=== PATIENT | male | born 1930 | race Caucasian/White ===

== ENCOUNTER 2017-08-27 10:58 | Emergency (ER) | payer OTHER ==
[~2017-08-27] VITALS: Ht 177.8 cm; Wt 83.5 kg
[~2017-08-27 10:58] MED LIST: AMLO5TAB2 PO; ASPI-496 PO; ATOR20TA9 PO; CHOL5000 PO; HYAL0.5P PO; METF500T4 PO; TERA5CAP3 PO; UBID30CA9 PO
[2017-08-27] MEDS ORDERED: SODIUM CHLORIDE FLUSH 10ML SYR IVF ONE (11:30)
[2017-08-27 11:50] LABS: BASOPHILS # (AUTO) 0.04 x10^3/uL (0-0.1); BASOPHILS % (AUTO) 1 % (0-1); EOSINOPHILS # (AUTO) 0.58 x10^3/uL (0-0.4); EOSINOPHILS % (AUTO) 9 % (1-7); LYMPHOCYTES # (AUTO) 1.45 x10^3/uL (1-3.4); LYMPHOCYTES % (AUTO) 24 % (22-44); MD NO; MEAN CORPUSCULAR HEMOGLOBIN 30.2 pg (27.5-34.5); MEAN CORPUSCULAR HGB CONC 33.5 g/dL (33.2-36.2); MEAN CORPUSCULAR VOLUME 90.3 fL (81-97); MEAN PLATELET VOLUME 7.9 fL (7.4-10.4); MONOCYTES # (AUTO) 0.72 x10^3/uL (0.2-0.8); MONOCYTES % (AUTO) 12 % (2-9); NEUTROPHILS # (AUTO) 3.34 x10^3/uL (1.8-6.8); NEUTROPHILS % (AUTO) 54 % (42-75); PLATELET COUNT 270 x10^3/uL (130-400); RED BLOOD COUNT 4.89 x10^6/uL (4.38-5.82); RED CELL DISTRIBUTION WIDTH 13.8 % (9.4-14.8)
[2017-08-27 12:02] LABS: ALBUMIN 3.7 g/dL (3.4-5.0); CALCIUM 8.2 mg/dL (8.5-10.1); CHLORIDE 104 mmol/L (98-107)
[2017-08-27 12:07] LABS: ALANINE AMINOTRANSFERASE 26 U/L (12-78); ALKALINE PHOSPHATASE 38 U/L (45-117); BILIRUBIN,TOTAL 0.8 mg/dL (0.2-1.0); CREATININE 0.96 mg/dL (0.7-1.3); TOTAL PROTEIN 7.1 g/dL (6.4-8.2); TROPONIN I < 0.015 ng/mL (0.000-0.045)
[2017-08-27 12:12] LABS: ANION GAP 4 mmol/L (5-15)
[2017-08-27] MEDS ORDERED: CHOL5000 PO (12:51)
[2017-08-27 12:59] VITALS: BP 154/71
== END 2017-08-27 13:14 | disposition home or self-care (01) ==
LOC: ED 13:08
DX: R06.00 Dyspnea, unspecified (principal); R53.1 Weakness; R06.2 Wheezing; Z87.891 Personal history of nicotine dependence
CPT/HCPCS: 36415; 71045; 80053; 84484; 85025; 93005; 99285

== ENCOUNTER 2017-08-30 09:53 | Emergency (ER) | payer OTHER ==
[~2017-08-30] VITALS: Ht 177.8 cm; Wt 82.2 kg
[2017-08-30 10:13] VITALS: BP 126/73
[2017-08-30] MEDS ORDERED: ALBUTEROL/IPRATROPIUM 2.5MG/0.5MG, 3 ML ONE (10:44)
[2017-08-30] MEDS ORDERED: ALBUTEROL/IPRATROPIUM 2.5MG/0.5MG, 3 ML NPPB ONE (11:00)
== END 2017-08-30 12:14 | disposition home or self-care (01) ==
LOC: ED 10:57
DX: J00 Acute nasopharyngitis [common cold] (principal); Z87.891 Personal history of nicotine dependence
CPT/HCPCS: 71046; 94640; 99284; J7620

== ENCOUNTER 2017-11-13 23:00 | Inpatient (IN) | payer OTHER ==
[~2017-11-13] VITALS: Ht 180.3 cm; Wt 83.9 kg
[~2017-11-13 23:00] MED LIST changes: +ALBU18HF INH; +CETI10CA PO; +DOXY100T PO; +GUAI200T3 PO; +LOSA25TA2 PO; +METO25TA35 PO; +OMEP-110 PO
[2017-11-13] MEDS ORDERED: ALBUTEROL/IPRATROPIUM 2.5MG/0.5MG, 3 ML ONE (23:15)
[2017-11-13 23:25] LABS: BASOPHILS % (AUTO) 0 % (0-1); EOSINOPHILS % (AUTO) 0 % (1-7); LYMPHOCYTES # (AUTO) 0.69 x10^3/uL (1-3.4); LYMPHOCYTES % (AUTO) 7 % (22-44); MD NO; MEAN CORPUSCULAR HEMOGLOBIN 30.2 pg (27.5-34.5); MEAN CORPUSCULAR HGB CONC 33.6 g/dL (33.2-36.2); MEAN CORPUSCULAR VOLUME 89.8 fL (81-97); MEAN PLATELET VOLUME 8.1 fL (7.4-10.4); MONOCYTES # (AUTO) 0.92 x10^3/uL (0.2-0.8); MONOCYTES % (AUTO) 10 % (2-9); NEUTROPHILS # (AUTO) 7.65 x10^3/uL (1.8-6.8); NEUTROPHILS % (AUTO) 83 % (42-75); PLATELET COUNT 262 x10^3/uL (130-400); RED BLOOD COUNT 4.06 x10^6/uL (4.38-5.82); RED CELL DISTRIBUTION WIDTH 13.9 % (9.4-14.8)
[2017-11-13] MEDS ORDERED: ALBUTEROL/IPRATROPIUM 2.5MG/0.5MG, 3 ML NPPB ONE (23:30)
[2017-11-13] MEDS ORDERED: methylPREDNISolone SOD SUCC 125 MG/2 ML IVP ONE (23:30)
[2017-11-13] MEDS ORDERED: SODIUM CHLORIDE FLUSH 10ML SYR IVF ONE (23:30)
[2017-11-13 23:36] LABS: ALANINE AMINOTRANSFERASE 24 U/L (12-78); ALBUMIN 3.2 g/dL (3.4-5.0); ANION GAP 9 mmol/L (5-15); CALCIUM 8.3 mg/dL (8.5-10.1); CHLORIDE 98 mmol/L (98-107); CREATININE 1.14 mg/dL (0.7-1.3)
[2017-11-13 23:40] LABS: ALKALINE PHOSPHATASE 34 U/L (45-117); BILIRUBIN,TOTAL 0.3 mg/dL (0.2-1.0); TOTAL PROTEIN 6.3 g/dL (6.4-8.2); TROPONIN I < 0.015 ng/mL (0.000-0.045)
[2017-11-13] MEDS ORDERED: methylPREDNISolone SOD SUCC 125 MG/2 ML ONE (23:43)
[2017-11-14] MEDS ORDERED: FUROSEMIDE 40 MG/4 ML IV ONE
[2017-11-14] MEDS ORDERED: FUROSEMIDE 20 MG/2 ML ONE (00:05)
[2017-11-14] MEDS ORDERED: ACETAMINOPHEN 325 MG TABLET PO PRN (00:30)
[2017-11-14] MEDS ORDERED: CETIRIZINE 10 MG TABLET PO PRN (00:30)
[2017-11-14] MEDS ORDERED: BISACODYL 10 MG SUPP PR PRN (00:30)
[2017-11-14] MEDS ORDERED: ALBUTEROL SULFATE 2.5 MG/3 ML HHN PRN (00:30)
[2017-11-14] MEDS ORDERED: ONDANSETRON 2MG/ML, 2ML IVPush PRN (00:30)
[2017-11-14] MEDS: methylPREDNISolone SOD SUCC 125 MG/2 ML IVPush SCH ×4 (00:30→19:13)
[2017-11-14] MEDS ORDERED: GUAIFENESIN/DM 200-20MG, 10ML UDC PO PRN (00:30)
[2017-11-14] MEDS ORDERED: POLYETHYLENE GLYCOL 17 GM PACKET PO PRN (00:30)
[2017-11-14 00:56] LABS: HEMOGLOBIN A1C 6.6 % (4.2-6.3)
[2017-11-14 01:05] VITALS: BP 163/71
[2017-11-14] MEDS: MELATONIN 3 MG TABLET PO PRN ×2 (01:17→20:40)
[2017-11-14] MEDS: ATORVASTATIN 20 MG TABLET PO SCH ×2 (01:17→20:40)
[2017-11-14] MEDS: HEPARIN 5,000 UNITS/ML, 1ML SQ SCH ×3 (01:18→17:50)
[2017-11-14] MEDS ORDERED: ALBUTEROL SULFATE 2.5 MG/3 ML NPPB PRN (01:30)
[2017-11-14] MEDS: AZITHROMYCIN 500 MG in SODIUM CHLORIDE 0.9% 250 ML IV SCH (01:46)
[2017-11-14 05:51] LABS: ALANINE AMINOTRANSFERASE 26 U/L (12-78); ALBUMIN 3.3 g/dL (3.4-5.0); ANION GAP 8 mmol/L (5-15); CALCIUM 8.3 mg/dL (8.5-10.1); CHLORIDE 98 mmol/L (98-107); CREATININE 1.02 mg/dL (0.7-1.3)
[2017-11-14 05:54] LABS: ALKALINE PHOSPHATASE 34 U/L (45-117); BILIRUBIN,TOTAL 0.3 mg/dL (0.2-1.0); TOTAL PROTEIN 6.5 g/dL (6.4-8.2)
[2017-11-14 05:55] LABS: BASOPHILS % (AUTO) 0 % (0-1); EOSINOPHILS % (AUTO) 0 % (1-7); LYMPHOCYTES # (AUTO) 0.49 x10^3/uL (1-3.4); LYMPHOCYTES % (AUTO) 7 % (22-44); MD NO; MEAN CORPUSCULAR HEMOGLOBIN 30.2 pg (27.5-34.5); MEAN CORPUSCULAR HGB CONC 33.8 g/dL (33.2-36.2); MEAN CORPUSCULAR VOLUME 89.4 fL (81-97); MEAN PLATELET VOLUME 8.4 fL (7.4-10.4); MONOCYTES # (AUTO) 0.23 x10^3/uL (0.2-0.8); MONOCYTES % (AUTO) 3 % (2-9); NEUTROPHILS # (AUTO) 6.78 x10^3/uL (1.8-6.8); NEUTROPHILS % (AUTO) 90 % (42-75); PLATELET COUNT 255 x10^3/uL (130-400); RED BLOOD COUNT 4.02 x10^6/uL (4.38-5.82); RED CELL DISTRIBUTION WIDTH 14.6 % (9.4-14.8)
[2017-11-14] MEDS: METOPROLOL TARTRATE 25 MG TABLET PO SCH ×2 (06:21→17:57)
[2017-11-14 06:30] VITALS: BP 147/67
[2017-11-14] MEDS: SODIUM CHLORIDE FLUSH 10ML SYR IVF SCH ×2 (09:00→20:40)
[2017-11-14] MEDS ORDERED: metFORMIN 500 MG TABLET PO SCH (09:00)
[2017-11-14] MEDS: FUROSEMIDE 20 MG/2 ML IV SCH ×2 (09:17→17:50)
[2017-11-14] MEDS: SENNA/DOCUSATE TABLET PO SCH (09:22)
[2017-11-14] MEDS: TERAZOSIN 5MG CAPSULE PO SCH (09:22)
[2017-11-14] MEDS: ASPIRIN 81 MG TABLET EC PO SCH (09:22)
[2017-11-14] MEDS: OMEPRAZOLE 20 MG CAPSULE.DR PO SCH ×2 (09:23→17:50)
[2017-11-14] MEDS: CHOLECALCIFEROL 1,000 UNIT TABLET PO SCH (09:23)
[2017-11-14] MEDS: LOSARTAN 25MG TABLET PO SCH (09:23)
[2017-11-14] MEDS ORDERED: ALPR-475 PO (11:52)
[2017-11-14] MEDS ORDERED: AMLO5TAB2 PO (11:52)
[2017-11-14] MEDS ORDERED: ESCI10TA PO (11:52)
[2017-11-14 12:00] VITALS: BP 123/61
[2017-11-14] MEDS: GUAIFENESIN ER 600 MG TABLET PO SCH ×2 (12:07→20:40)
[2017-11-14] MEDS ORDERED: ALBU90AE INH (12:29)
[2017-11-14] MEDS ORDERED: ALBUTEROL SULFATE 90 MCG INH PRN (16:00)
[2017-11-14 19:32] VITALS: BP 132/62
[2017-11-15 01:22] VITALS: BP 131/66
[2017-11-15] MEDS: AZITHROMYCIN 500 MG in SODIUM CHLORIDE 0.9% 250 ML IV SCH (01:37)
[2017-11-15] MEDS: HEPARIN 5,000 UNITS/ML, 1ML SQ SCH ×2 (01:38→08:06)
[2017-11-15] MEDS: methylPREDNISolone SOD SUCC 125 MG/2 ML IVPush SCH ×2 (01:38→08:07)
[2017-11-15 08:04] VITALS: BP 124/60
[2017-11-15] MEDS: CHOLECALCIFEROL 1,000 UNIT TABLET PO SCH (08:05)
[2017-11-15] MEDS: SENNA/DOCUSATE TABLET PO SCH (08:05)
[2017-11-15] MEDS: GUAIFENESIN ER 600 MG TABLET PO SCH (08:05)
[2017-11-15] MEDS: TERAZOSIN 5MG CAPSULE PO SCH (08:06)
[2017-11-15] MEDS: ASPIRIN 81 MG TABLET EC PO SCH (08:06)
[2017-11-15] MEDS: OMEPRAZOLE 20 MG CAPSULE.DR PO SCH (08:06)
[2017-11-15] MEDS: LOSARTAN 25MG TABLET PO SCH (08:06)
[2017-11-15] MEDS: SODIUM CHLORIDE FLUSH 10ML SYR IVF SCH (08:07)
[2017-11-15] MEDS: FUROSEMIDE 20 MG/2 ML IV SCH (08:07)
[2017-11-15] MEDS ORDERED: CITALOPRAM 20 MG TABLET PO SCH (09:00)
[2017-11-15] MEDS ORDERED: METH4TAB2 PO (10:03)
[2017-11-15] MEDS ORDERED: CITA20TA9 PO (10:03)
== END 2017-11-15 11:30 | disposition home or self-care (01) | DRG 190 ==
LOC: ED 23:18 → EDIP 23:47 → 4WST 11-14 01:05 → DCLOUNGE 11-15 11:16
PROVIDERS: ADMIT Hospitalist; ATTEND Hospitalist
DX: J44.1 Chronic obstructive pulmonary disease with (acute) exacerbation (principal); I50.23 Acute on chronic systolic (congestive) heart failure; E11.65 Type 2 diabetes mellitus with hyperglycemia; E44.1 Mild protein-calorie malnutrition; D64.9 Anemia, unspecified; E87.1 Hypo-osmolality and hyponatremia; I11.0 Hypertensive heart disease with heart failure; Z68.25 Body mass index [BMI] 25.0-25.9, adult; E78.5 Hyperlipidemia, unspecified; G47.33 Obstructive sleep apnea (adult) (pediatric); N40.0 Benign prostatic hyperplasia without lower urinary tract symptoms; Z66 Do not resuscitate; Z80.0 Family history of malignant neoplasm of digestive organs; Z87.891 Personal history of nicotine dependence
CPT/HCPCS: 36415; 71045; 80053; 83036; 83735; 83880; 84484; 85025; 93005; 94640; 96374; 96375; J0456; J1644; J1940; J7620; J2930; J7050